=== PATIENT | male | born 1980 | race Caucasian/White ===

== ENCOUNTER 2017-04-05 14:30 | Emergency (ER) | payer OTHER ==
[~2017-04-05] VITALS: Ht 188 cm; Wt 139.6 kg
[2017-04-05] MEDS ORDERED: HYDR25TA6 (14:36)
[2017-04-05] MEDS ORDERED: traMADol 50 MG TAB PO ONE (15:15)
[2017-04-05] MEDS ORDERED: LIDOCAINE 1% MDV 20ML VIAL SC ONE (15:15)
[2017-04-05] MEDS ORDERED: IBUP80TA PO (16:20)
[2017-04-05 16:28] VITALS: BP 143/96
== END 2017-04-05 16:53 | disposition home or self-care (01) ==
LOC: M ED 14:30
DX: S81.812A Laceration without foreign body, left lower leg, initial encounter (principal); W29.3XXA Contact with powered garden and outdoor hand tools and machinery, initial encounter; Y92.821 Forest as the place of occurrence of the external cause; Y93.89 Activity, other specified; Y99.9 Unspecified external cause status; I10 Essential (primary) hypertension; Z79.899 Other long term (current) drug therapy

== ENCOUNTER → 2018-10-16 | Outpatient (CLI) | payer OTHER ==
[~2018-10-16] MED LIST: HYDR25TA6; IBUP80TA PO
--- NOTE | 2018-10-17 04:22 | REP ---
Clinical: Pain with recent trauma/fall. Technique: AP, lateral, bilateral oblique views left wrist . Findings: The carpal bones, surrounding osseous structures, soft tissues, and joint spaces are normal. There is no evidence for acute fracture or dislocation. No subcutaneous emphysema or radiodense foreign body. Impression: Normal wrist series. No acute fracture or dislocation Electronically Signed by Vladimir Poole MD 10/17/2018 04:13 A
== END ==
LOC: M ADAMS 14:42
PROVIDERS: ATTEND Physician Assistant
DX: M25.532 Pain in left wrist (principal)

== ENCOUNTER → 2019-10-07 | Outpatient (CLI) | payer OTHER ==
--- NOTE | 2019-10-08 10:10 | REPPI ---
Clinical: Neck pain . Technique: AP, lateral, flexion/extension, bilateral oblique, and open-mouth views. Findings: Alignment and lordosis is maintained. There is no evidence for acute fracture / compression injury or subluxation. No significant degenerative changes are appreciated. Oblique views demonstrate patent neural foramen. Open mouth view demonstrates normal C1-C2 articulation and odontoid process. Impression: Normal cervical spine series. Electronically Signed by Vladimir Poole MD 10/08/2019 02:13 A
== END ==
LOC: M PLAIMG 14:51
PROVIDERS: ATTEND Nurse Practitioner Family
DX: M54.2 Cervicalgia (principal)

== ENCOUNTER → 2019-10-07 | Outpatient (REF) | payer OTHER ==
[2019-10-07 16:37] LABS: BASO # 0.1 10^3/uL (0.0-0.2); BASO % 0.8 % (0.0-1.0); EOS # 0.6 10^3/uL (0.0-0.5); EOS % 5.1 % (0.0-3.0); HEMATOCRIT 50.4 % (42.0-52.0); HEMOGLOBIN 16.3 g/dl (13.5-17.5); LYMPH # 3.7 10^3/uL (1.5-5.0); LYMPH % 29.3 % (24.0-44.0); MEAN CORPUSCULAR HEMOGLOBIN 27.1 pg (27.0-33.0); MEAN CORPUSCULAR HGB CONC 32.3 g/dl (32.0-36.5); MEAN CORPUSCULAR VOLUME 83.9 fl (80.0-96.0); MONO # 0.9 10^3/uL (0.0-0.8); MONO % 6.8 % (0.0-5.0); NEUTROPHILS # 7.2 10^3/uL (1.5-8.5); NEUTROPHILS % 57.6 % (36.0-66.0); PLATELET COUNT, AUTOMATED 306 10^3/uL (150-450); RED BLOOD COUNT 6.01 10^6/uL (4.30-6.10); WHITE BLOOD COUNT 12.5 10^3/uL (4.0-10.0)
[2019-10-07 17:09] LABS: ALBUMIN 4.1 GM/DL (3.2-5.2); ALT/SGPT 45 U/L (12-78); BILIRUBIN,TOTAL 0.3 MG/DL (0.2-1.0); BLOOD UREA NITROGEN 13 MG/DL (7-18); CARBON DIOXIDE LEVEL 30 MEQ/L (21-32); CHLORIDE LEVEL 104 MEQ/L (98-107); CREATININE FOR GFR 1.23 MG/DL (0.70-1.30); FREE T4 1.04 NG/DL (0.76-1.46); GLOMERULAR FILTRATION RATE > 60.0 (>60); GLUCOSE, FASTING 74 MG/DL (70-100); POTASSIUM SERUM 4.4 MEQ/L (3.5-5.1); SODIUM LEVEL 139 MEQ/L (136-145)
[2019-10-07 17:22] LABS: ERYTHROCYTE SEDIMENTATION RATE 8 mm/hr (0-15)
== END ==
LOC: M SFHCPLAZ 14:37
PROVIDERS: ATTEND Nurse Practitioner Family
DX: I10 Essential (primary) hypertension (principal); R51 Headache; E66.01 Morbid (severe) obesity due to excess calories

== ENCOUNTER → 2019-11-14 | Outpatient (CLI) | payer OTHER ==
--- NOTE | 2019-11-14 17:27 | REPVR ---
PROCEDURE INFORMATION: Exam: MR Head Without Contrast Exam date and time: 11/14/2019 3:09 PM Age: 39 years old Clinical indication: Dizziness; Patient HX: Headaches; Additional info: Dizziness gittiness loc / cervicalgia TECHNIQUE: Imaging protocol: MR of the head without contrast. COMPARISON: No relevant prior studies available. FINDINGS: Brain: Prominent perivascular space in the left inferior basal ganglia. Slight prominent CSF isointense space along the left anterolateral middle cranial fossa, which could represent small arachnoid cyst versus sequela of chronic anterior left temporal encephalomalacic change. Few scattered nonspecific T2/FLAIR hyperintensities of the left periventricular and deep subcortical white matter. No intracranial hemorrhage or extra-axial fluid collection. No evidence of mass effect or midline shift. No restricted diffusion to suggest acute infarct. Ventricles: Prominence of the ventricles and sulci, likely attributed to parenchymal volume loss. Bones/joints: Unremarkable. Soft tissues: Unremarkable. Sinuses: Retention cysts in the left maxillary sinus. Mastoid air cells: No mastoid effusion. Orbits: Unremarkable. IMPRESSION: 1. No acute intracranial pathology. 2. Few scattered T2/FLAIR hyperintensities of the left periventricular and deep subcortical white matter. Findings are nonspecific though differential includes but is not limited to sequela of chronic small vessel ischemic change, demyelinating disease, or other chronic inflammatory white matter disease. 3. Slight prominent CSF isointense space along the left anterolateral middle cranial fossa, which could represent small arachnoid cyst versus sequela of chronic anterior left temporal encephalomalacic change. Electronically signed by: Jose Garcia On 11/14/2019 17:27:01 PM
--- NOTE | 2019-11-14 17:30 | REPVR ---
PROCEDURE INFORMATION: Exam: MR Cervical Spine Without Contrast Exam date and time: 11/14/2019 3:09 PM Age: 39 years old Clinical indication: Pain; Cervicalgia; Additional info: Dizziness gittiness loc / cervicalgia TECHNIQUE: Imaging protocol: Multiplanar magnetic resonance images of the cervical spine without contrast. COMPARISON: CR SPINE CERVICAL COMPLETE 10/07/2019 3:03 PM FINDINGS: Cervical vertebral body heights are intact. Straightening of the cervical lordosis. The dens is intact. No abnormal marrow signal. Very small central spinal cord syrinx at the C3-C4 level measuring up to 1 mm in diameter. No cord compression or expansion. Visualized structures of the posterior fossa are unremarkable. Soft tissues are unremarkable. C2-C3: No significant canal or foraminal narrowing. C3-C4: Posterior disc protrusion causes mild canal narrowing and mild bilateral foraminal narrowing. C4-C5: No significant canal or foraminal narrowing. C5-C6: No significant canal or foraminal narrowing. C6-C7: No significant canal or foraminal narrowing. C7-T1: No significant canal or foraminal narrowing. IMPRESSION: Very small central spinal cord syrinx at the C3-C4 level measuring up to 1 mm in diameter. Otherwise, no acute findings in the cervical spine. Electronically signed by: Jose Garcia On 11/14/2019 17:29:48 PM
== END ==
LOC: M PLARAD 14:24
PROVIDERS: ATTEND Psychiatry & Neurology Neurology
DX: S06.5X0S Traumatic subdural hemorrhage without loss of consciousness, sequela (principal); G95.0 Syringomyelia and syringobulbia; R42 Dizziness and giddiness; G44.221 Chronic tension-type headache, intractable; M54.2 Cervicalgia; M43.02 Spondylolysis, cervical region; R93.0 Abnormal findings on diagnostic imaging of skull and head, not elsewhere classified; X58.XXXA Exposure to other specified factors, initial encounter

== ENCOUNTER → 2019-11-25 | Outpatient (REF) | payer OTHER ==
[2019-11-25 18:33] LABS: BLOOD UREA NITROGEN 10 MG/DL (7-18); CALCIUM LEVEL 9.5 MG/DL (8.5-10.1); CARBON DIOXIDE LEVEL 31 MEQ/L (21-32); CHLORIDE LEVEL 101 MEQ/L (98-107); CREATININE FOR GFR 0.99 MG/DL (0.70-1.30); GLOMERULAR FILTRATION RATE > 60.0 (>60); GLUCOSE, FASTING 76 MG/DL (70-100); POTASSIUM SERUM 4.4 MEQ/L (3.5-5.1); SODIUM LEVEL 137 MEQ/L (136-145)
== END ==
LOC: M SFHCPLAZ 15:41
PROVIDERS: ATTEND Nurse Practitioner Family
DX: I10 Essential (primary) hypertension (principal)

== ENCOUNTER → 2020-06-22 | Outpatient (CLI) | payer OTHER ==
--- NOTE | 2020-07-01 22:10 | ECWPNPC ---
PATIENT NAME: JOSÉ MIGUEL RAYMOND : 1980 GENDER: MALE VISIT DATE: 06/22/2020 DISCHARGE DATE: 06/22/20927 VISIT LOCKED DATE TIME: PHYSICIAN: ARAMIS CHAMBERLAIN PHYSICIAN PAGER NO: ACTIVE RESOURCE: ARAMIS CHAMBERLAIN REASON FOR APPOINTMENT 1. NECK PAIN - PAT DONE HISTORY OF PRESENT ILLNESS DEPRESSION SCREENIN-YEAR-OLD GENTLEMAN REFERRED BY GOKUL SANCHEZ, PRIMARY CARE TO EVALUATE PERSISTENT NECK AND HEAD PAIN. PATIENT REPORTS HEADACHES FOR 2 YEARS. DENIES PRECIPITATING EVENT. FOLLOWING WITH NEUROLOGY AND IS IN THE MIDST OF A WORKUP. MRI IMAGING OF THE CERVICAL SPINE IS ABNORMAL SHOWING A SMALL SYRINX. MRI OF THE BRAIN IS ABNORMAL AND REQUIRES FURTHER NEUROLOGICAL EVALUATION. PATIENT IS WILLING TO CALL [facility] TO OBTAIN A FOLLOW-UP. HE IS NOT A CANDIDATE FOR INJECTIONS. PHQ-2 (2015 EDITION) LITTLE INTEREST OR PLEASURE IN DOING THINGS?NOT AT ALL FEELING DOWN, DEPRESSED, OR HOPELESS?NOT AT ALL TOTAL SCORE0 GENERAL: - - -. FALL RISK SCREENING: SCREENING :NO FALLS REPORTED IN THE LAST YEAR NO FALLS PAIN SCREENING: PATIENT HAS A COMPLAINT OF ACUTE OR CHRONIC PAIN :YES LOCATION OF PAIN:NECK, MID BACK INTENSITY OF PAIN (SCALE OF 1 TO 10):8 WHAT DOES YOUR PAIN FEEL LIKE:ACHING DURATION:CONSTANT PAIN IS INCREASED BY:ACTIVITIES PAIN IS DECREASED BY:OTHERS NURSING NOTE: - - -. PAIN CENTER INTAKE QUESTIONS: DO YOU HAVE A HISTORY OF MRSA? :NO DO YOU TAKE A BLOOD THINNERS? :NO DO YOU HAVE ANY BLEEDING DISORDERS? :NO ANY NEW NUMBNESS OR WEAKNESS IN YOUR LEGS OR ARMS? :NO WILL HAVE PAIN IN LEFT FOOT FROM TIME TO TIME ANY PACEMAKER,DEFIBRILLATOR, OR DORSAL COLUMN STIMULATOR? :NO DO YOU HAVE ANY RASHES OR OPEN SORES? :NO ARE YOU ALLERGIC TO IV DYE? :NO ARE YOU DIABETIC? :NO ANY NEW PROBLEMS WITH YOUR MEDICATIONS? :NO HAVE YOU RECEIVED A VACCINE IN THE PAST 30 DAYS? :NO DO YOU PLAN TO RECEIVE A VACCINE IN THE NEXT 21 DAYS? :NO DO YOU NEED ANY PRESCRIPTION? :NO DO YOU TAKE ANY IMMUNOSUPPRESSIVE MEDICATIONS? :NO IS THERE A CHANCE YOU COULD BE ? :NO ARE YOU BREAST FEEDING? :NO CURRENT MEDICATIONS TAKING LISINOPRIL 10 MG TABLET 1 TABLET ORALLY ONCE A DAY NOT-TAKING IBUPROFEN 800 MG TABLET 1 TABLET WITH FOOD OR MILK NEEDED ORALLY THREE TIMES A DAY NOT-TAKING METOPROLOL SUCCINATE ER 50 MG TABLET EXTENDED RELEASE 24 HOUR 1 TABLET ORALLY ONCE A DAY AT BEDTIME MEDICATION LIST REVIEWED AND RECONCILED WITH THE PATIENT PAST MEDICAL HISTORY HTN NECK PAIN HEADACHES - NEUROLOGY HYPERTENSION SUBDURAL HEMATOMA (PER PT) ALLERGIES SUMATRIPTAN: NAUSEA/VOMITING - SIDE EFFECTS AMLODIPINE BESYLATE: DIZZINESS - SIDE EFFECTS SURGICAL HISTORY DENIES PAST SURGICAL HISTORY FAMILY HISTORY FATHER: ALIVE 61 YRS, NONE MOTHER: ALIVE 61 YRS, DIAGNOSED WITH HYPERTENSION PATERNAL GRAND FATHER: , MS, CANCER, OTHER MALIGNANT NEOPLASM OF UNSPECIFIED SITE PATERNAL GRAND MOTHER: , OTHER MALIGNANT NEOPLASM OF UNSPECIFIED SITE MATERNAL GRAND FATHER: , OTHER MALIGNANT NEOPLASM OF UNSPECIFIED SITE MATERNAL GRAND MOTHER: , OTHER MALIGNANT NEOPLASM OF UNSPECIFIED SITE 1 BROTHER(S) , 1 SISTER(S) - HEALTHY. 1 SON(S) , 2 DAUGHTER(S) - HEALTHY. SOCIAL HISTORY GENERAL: TOBACCO USE ARE YOU A:FORMER SMOKER HOW LONG HAS IT BEEN SINCE YOU LAST SMOKED?5-10 YEARS LATEX QUESTIONNAIRE LATEX ALLERGY : HAVE YOU EVER DEVELOPED ANY TYPE OF REACTION AFTER HANDLING LATEX PRODUCTS SUCH RUBBER GLOVES, CONDOMS, DIAPHRAGMS, BALLOONS, SOCKS, OR UNDERWEAR?NO LATEX ALLERGY : HAVE YOU EVER DEVELOPED ANY TYPE OF REACTION DURING OR AFTER DENTAL APPOINTMENT, VAGINAL/RECTAL EXAMINATION, SURGICAL PROCEDURE, OR ANY OTHER EXPOSURE?NO DATE ASKED : 10/07/2019 LATEX RISK : HAVE YOU EVER HAD ANY DIFFICULTY BREATHING OR HIVES AFTER EATING OR HANDLING ANY FRUITS, OR VEGETABLES; SUCH KIWI, BANANAS, STONE FRUITS, OR CHESTNUTSNO LATEX RISK : DO YOU HAVE A PREVIOUS PERSONAL HISTORY OF MORE THAN NINE SURGERIES, SPINA BIFIDA, OR REPEATED CATHERIZATIONS? NO LATEX RISK : ARE YOU FREQUENTLY EXPOSED TO LATEX PRODUCTS IN YOUR OCCUPATION?NO BMI CARE GOAL FOLLOW-UP ABOVE NORMAL BMI FOLLOW-UPGIVING ENCOURAGEMENT TO EXERCISE ALCOHOL SCREENING DID YOU HAVE A DRINK CONTAINING ALCOHOL IN THE PAST YEAR?YES HOW OFTEN DID YOU HAVE A DRINK CONTAINING ALCOHOL IN THE PAST YEAR?MONTHLY OR LESS (1 POINT) HOW MANY DRINKS DID YOU HAVE ON A TYPICAL DAY WHEN YOU WERE DRINKING IN THE PAST YEAR?1 OR 2 (0 POINTS) HOW OFTEN DID YOU HAVE SIX OR MORE DRINKS ON ONE OCCASION IN THE PAST YEAR?NEVER (0 POINTS) POINTS1 INTERPRETATIONNEGATIVE RECREATIONAL DRUG USE DRUG USE?YES CAFFEINE CAFFEINE USE?YES COFFEE 2 CUPS SODA-2-3 A DAY SEXUAL HX HAD SEX IN THE LAST 12 MONTHS (VAGINAL, ORAL, OR ANAL)?YES WITHWOMEN ONLY USE PROTECTION?NO HAVE YOU EVER HAD AN STD?NO HIV / HEP-C SCREENING HIV TEST OFFERED TO PATIENT:YES DATE OFFERED:10/07/2019 TEST ACCEPTED:NO HEP-C TEST OFFERED TO PATIENT:NO REASON:PATIENT DECLINED BROCHURE PROVIDED TO PATIENTYES TEMPLE [id number] NONE LANGUAGE LANGUAGES SPOKEN:DIVEHI LEARNING BARRIERS / SPECIAL NEEDS CHANGE FROM LAST VISIT?NO BARRIERS TO LEARNING?NO HEARING IMPAIRED?NO VISION IMPAIRED?YES COGNITIVELY IMPAIRED?NO :CORRECTIVE LENSES READINESS TO LEARN?YES LEARNING PREFERENCES?NO LEARNING CAPABILITIES PRESENT?YES EMOTIONAL BARRIERS?NO SPECIAL DEVICES?NO GEOTECHNICAL FIELD TECHNICIAN NEEDED?NO OCCUPATION: LAID OFF. DIET: REGULAR. EXERCISE: NO REGULAR EXERCISE. MARITAL STATUS: SINGLE. OTHERS AT HOME: SON, DAUGHTER, GIRLFRIEND. ADVANCE DIRECTIVE ADVANCE DIRECTIVE DISCUSSED WITH PATIENT:YES HOSPITALIZATION/MAJOR DIAGNOSTIC PROCEDURE SKULL FRACTURE AGE 5 SKULL FRACTURE AGE 10 REVIEW OF SYSTEMS CONSTITUTIONAL: ANY RECENT FEVER NO . CHILLS NO . WEIGHT CHANGE OF UNKNOWN REASONS NO . MUSCULOSKELETAL: ANY UNUSUAL JOINT PAIN OR SWELLING NOT MENTIONED NO . SYSTEMIC LUPUS NO . ANY NEUROMUSCULAR DISORDER NOT MENTIONED NO . LYME DISEASE NO . GASTROENTEROLOGY: ANY NEW CHANGE IN BOWEL CONTROL? NO . HISTORY OF LIVER DISORDER NOT MENTIONED NO . HISTORY OF UNUSUAL ABDOMINAL PAIN OR CRAMPING NOT MENTIONED NO . NO CONSTIPATION. GENITOURINARY: ANY NEW CHANGE IN BLADDER CONTROL? NO . ANY RENAL/KIDNEY CONDITON NOT MENTIONED NO . NEUROLOGY: HISTORY OF TBI NOT MENTIONED NO . OTHER NEW NUMBNESS OR PAIN PATTERNS NOT MENTIONED NO . NEW ONSET DIZZINESS OR NEUROLOGICAL CHANGES NOT MENTIONED NO . HISTORY OF SEVERE HEADACHES NOT MENTIONED NO . HISTORY OF STROKE OR NEUROLOGICAL DISORDER NOT MENTIONED NO . CARDIOLOGY: HEART SURGERY NO . CONGESTIVE HEART FAILURE/FLUID OVERLOAD NOT MENTIONED NO . HISTORY OF CHEST PAIN,IRREGULAR HEART BEAT NOT MENTIONED NO . RESPIRATORY: SHORTNESS OF BREATH ON EXERTION, WHEEZES, UNUSUAL COUGH NOT MENTIONED NO . ENDOCRINOLOGY: ADRENAL GLAND OR THYROID DISORDERS NOT MENTIONED NO . UNUSUAL URINATION, DIZZINESS OR LETHARGY NOT MENTIONED NO . VITAL SIGNS WT 322.4 LBS, HT 72 IN, BMI 43.72 INDEX, BP 166/103 MM HG, HR 74 /MIN, RR 20 /MIN, TEMP 97.4 F, OXYGEN SAT % 96%, SAFE IN ENV? (Y/N) YES, NA INITIALS AW [id number], REVIEWED BY: CAMILO. EXAMINATION GENERAL EXAMINATION: GENERALAWAKE,ALERT ,PLEASANT . PSYCHAFFECT NORMAL . NECK:TRACHEA MIDLINE. NO CERVICAL OR SUPRACLAVICULAR LYMPHADENOPATHY NOTED. LUNGS:LUNG PUTNAM ARE CLEAR TO AUSCULTATION BILATERALLY. GOOD MOVEMENT OF AIR . HEART:S1, S2 IN A REGULAR RATE AND RHYTHM. NO SIGNIFICANT MURMURS, RUBS OR GALLOPS NOTED . ABDOMEN:SOFT/NONTENDER. MUSCULOSKELETAL:MUSCLE STRENGTH TESTING 5/5 BILATERAL UPPER/LOWER EXTREMITIES. LUMBAR:PALPATION: NEGATIVE FOR PAIN OVER L/S SPINE. NEGATIVE FOR PAIN OVER L/S PARASPINALS. , TRIGGER POINTS:. CERVICAL:NEGATIVE FOR PAIN WITH PALPATION OF CERVICAL SPINE. NEGATIVE FOR PAIN WITH PALPATION OF CERVICAL PARASPINALS. NEGATIVE FOR PAIN WITH PALPATION OF TRAPEZIUS BILAT. SKIN:NO RASH OR SKIN LESIONS. NEUROLOGIC EXAM:CN'S NORMAL TESTED , DTRS 1-2+ IN ALL 4 EXTREMITIES. DIAGNOSTIC TESTS REVIEWED MRI [id number] 2020 MRI OF THE BRAIN?NOVEMBER 2019. ASSESSMENTS CERVICALGIA - M54.2 (PRIMARY) HEADACHE DISORDER - R51.9 TREATMENT CERVICALGIA NOTES: CONTINUE FOLLOW-UP WITH NEUROLOGY DUE TO ABNORMAL MRI OF THE BRAIN AND CERVICAL SPINE. HE IS NOT A CANDIDATE FOR INJECTION THERAPY. OTHERS NOTES: FRANK YEE RN 06/21/20 1630. PREVENTIVE MEDICINE (MALE) PREVENTIVE WELLNESS PLAN: TODAY'S VISIT PATIENT PRESENTS TODAY FOR: F/U WITH NEUROLOGY DUE TO MRI PROCEDURE CODES FA211 ESTABILISHED PATIENT [facility] FACILITY CHARGE DISPOSITION & COMMUNICATION FOLLOW UP NO FOLLOW-UP NECESSARY (REASON: HEADACHE) ELECTRONICALLY SIGNED BY MYRON FOSTER ON 07/01/2020 AT 04:25 PM EDT DISCLAIMER : THIS IS A VISIT SUMMARY EXTRACTED FROM THE [employer] CHART. IT IS NOT A COPY OF THE [employer] PROGRESS NOTE. SUDHA
== END ==
LOC: M PAIN 08:30
PROVIDERS: ATTEND Nurse Practitioner Family
DX: M54.2 Cervicalgia (principal); R51.9 Headache, unspecified; I10 Essential (primary) hypertension; Z87.891 Personal history of nicotine dependence; Z88.8 Allergy status to other drugs, medicaments and biological substances; E66.01 Morbid (severe) obesity due to excess calories; Z68.41 Body mass index [BMI] 40.0-44.9, adult; Z79.899 Other long term (current) drug therapy

== ENCOUNTER → 2020-11-19 | Outpatient (CLI) | payer OTHER ==
--- NOTE | 2020-11-19 16:07 | REP ---
INDICATION: CERVICALGIA, TRAUMA SUBDURAL HEMORRHAGE, SEQUELA. Dizziness and giddiness. COMPARISON: None. TECHNIQUE: 2D [id number] and 3D noncontrast MR angiography of the carotids is acquired. Maximum intensity projection images are generated and viewed rotationally. Source axial images are viewed. FINDINGS: The common carotid arteries are unremarkable. Cervical vertebral artery segments are patent and codominant. Carotid bifurcations are clear bilaterally. Great vessel origins are unremarkable. The cervical segments of the internal carotid arteries are intact. Maximum intensity projection images show no significant plaquing or stenosis. There is no evidence to suggest dissection. The internal carotid arteries are somewhat tortuous bilaterally. IMPRESSION: Internal carotid arteries are somewhat tortuous. Otherwise unremarkable bilateral carotid/neck MR angiography. <Electronically signed by Bar Gallego > 11/19/20 [id number]
--- NOTE | 2020-11-19 16:57 | REP ---
INDICATION: CERVICALGIA, TRAUMA SUBDURAL HEMORRHAGE, SEQUELA. COMPARISON: Comparison MRI study is from November 14, 2019.. TECHNIQUE: Sagittal and axial T1 and T2-weighted scans are acquired in the usual fashion with and without fat saturation. Sequences include spin echo, turbo spin-echo, and STIR imaging sequences. FINDINGS: There is straightening of the normal cervical lordosis. Vertebral body heights are preserved. Cortical and medullary bone signal intensity are normal. Alignment is normal. There is slight decreased disc space height and signal intensity at the C3-4 level. Sagittal images and and at axial images at C3-4 demonstrate mild uncovertebral spurring on the right at C3-4 question small right foraminal disc protrusion. This is felt to be unchanged from the November 14, 2019 study. At this C3-4 disc level, T2 weighted scans demonstrate focal minimal dilation of the central canal in the spinal cord unchanged and 1 mm in AP diameter. The other cervical discs are preserved in height and signal intensity on T1 and T2 weighted scans. No other disc protrusion is seen. No other evidence of uncovertebral spurring is appreciated. Cervical cord is otherwise normal in course caliber and signal intensity. IMPRESSION: Small right foraminal disc protrusion suspected at C3-4 with mild uncovertebral spurring. Unchanged. 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 Straightening. Otherwise negative. <Electronically signed by Bar Gallego > 11/19/20 [id number]
== END ==
LOC: M PLARAD 12:56
PROVIDERS: ATTEND Physician Assistant Medical
DX: R42 Dizziness and giddiness (principal); G95.0 Syringomyelia and syringobulbia; M47.892 Other spondylosis, cervical region; M54.2 Cervicalgia; S06.5X0S Traumatic subdural hemorrhage without loss of consciousness, sequela; X58.XXXS Exposure to other specified factors, sequela; Y92.9 Unspecified place or not applicable; Y93.9 Activity, unspecified; Y99.9 Unspecified external cause status

== ENCOUNTER → 2022-05-29 | Outpatient (CLI) | payer OTHER | LOC: M PLALAB 11:49 | PROVIDERS: ATTEND Physician Assistant | DX: M79.671 Pain in right foot (principal); M54.2 Cervicalgia ==